=== PATIENT | female | born 1995 | race Caucasian/White ===

== ENCOUNTER 2020-12-01 00:59 | Emergency (ER) | payer OTHER ==
[2020-12-01] MEDS ORDERED: Ketorolac Tromethamine 60 MG/2 ML VIAL ONE (01:33)
[2020-12-01] MEDS ORDERED: Ondansetron ODT 4 MG TAB ONE (01:33)
[2020-12-01] MEDS ORDERED: Orphenadrine Citrate 60 MG/2 ML VIAL ONE (01:33)
== END 2020-12-01 02:20 | disposition home or self-care (01) ==
LOC: NAV ERS 00:59
DX: M54.5 Low back pain (principal); K21.9 Gastro-esophageal reflux disease without esophagitis
CPT/HCPCS: 96372; 99283; J1885; J2360; Q0162